=== PATIENT | male | born 1995 | race African-American/Black ===

== ENCOUNTER 2017-05-01 07:16 | Emergency (ER) | payer SELFPAY ==
[~2017-05-01] VITALS: Ht 165.1 cm; Wt 60.0 kg
[2017-05-01 07:17] VITALS: BP 127/87; PULSE 68; RESP 20; TEMP 98.6; O2SAT 98
--- NOTE | 2017-05-01 08:06 | PD ---
HPI Chief Complaint: GI Complaint Time Seen by Provider: 07:51 Travel History International Travel<30 days: No Contact w/Intl Traveler<30days: No Traveled to known affect area: No History of Present Illness HPI This is a 21-year-old male who presents to the emergency department with pain in his rectum. For months he's had trouble with hemorrhoids and is also been told that he has a wart on his rectum. He says now it is painful to use the bathroom, he's having some pain when he walks, and he occasionally has some blood in his rectum. He's been using Preparation H and witch jose manuel but he says it noriega when he applies it. He went to a specialist but they said they couldn' t get him for removal for some time. He denies any fevers or chills. PFSH Past Medical History Immunizations Current: Yes Past Surgical History Genitourinary Surgery: Yes (SX FOR TESTICULAR TORSION) Pacemaker: No Tonsillectomy: Yes (and adnoids) Other Surgery: Yes (Warts removed from his mother) Social History Alcohol Use: No Tobacco Use: No Substance Use: No Allergies-Medications (Allergen,Severity, Reaction): Coded Allergies: Morphine (Verified Allergy, Severe, Rash, 05/08/15) Vancomycin (Verified Allergy, Severe, 05/08/15) Reported Meds & Prescriptions Reported Meds & Active Scripts Active No Active Prescriptions or Reported Medications Review of Systems Except as stated in HPI: all other systems reviewed are Neg Physical Exam Narrative GENERAL: Well-appearing, no acute distress, nontoxic SKIN: Warm and dry. HEAD: Atraumatic. Normocephalic. ENT: No nasal bleeding or discharge. Moist mucous membranes Rectal:Condyloma on the 9:00 aspect of the rectum with external hemorrhoids at 12:00 MUSCULOSKELETAL: No obvious deformities. No clubbing. No cyanosis. No edema. NEUROLOGICAL: Awake and alert. No obvious cranial nerve deficits. Motor grossly within normal limits. Normal speech. PSYCHIATRIC: Appropriate mood and affect; insight and judgment normal. Data Data Last Documented VS Vital Signs Date Time Temp Pulse Resp B/P Pulse Ox O2 Delivery O2 Flow Rate FiO2 05/01/17 07:17 98.6 68 20 127/87 98 Room Air MDM Medical Decision Making Medical Screen Exam Complete: Yes Emergency Medical Condition: Yes Differential Diagnosis Rectal condyloma, external hemorrhoids, internal hemorrhoids, perirectal abscess Narrative Course This is a 21-year-old male who presents to the emergency department with pain in his rectum. He has evidence of hemorrhoids and condyloma on his rectum. I Don't think he requires any acute intervention in the emergency department but I did provide him a referral to colorectal surgery. Patient will be discharged home. Diagnosis Primary Impression: Condyloma acuminatum of perianal region Referrals: Shane Wells MD Patient Instructions: General Instructions Additional Instructions: If you develop severe or worsening abdominal pain, fever>100.4, persistent vomiting or inability to eat or drink return to the emergency department immediately. Follow up with a colorectal surgeon as soon as possible. Med/Other Pt SpecificInfo: No Change to Meds Scripts No Active Prescriptions or Reported Meds Disposition: 01 DISCHARGE HOME Condition: Stable Meaghan Ayala MD May 01, 2017 08:05
== END 2017-05-01 08:32 | disposition home or self-care (01) ==
LOC: NEPC 07:16
DX: A63.0 Anogenital (venereal) warts (principal)
CPT/HCPCS: 99281

== ENCOUNTER 2017-05-07 04:32 | Emergency (ER) | payer SELFPAY ==
[~2017-05-07] VITALS: Ht 165.1 cm; Wt 61.5 kg
[2017-05-07 04:38] VITALS: BP 120/84; PULSE 73; RESP 16; TEMP 96.8; O2SAT 100
[2017-05-07] MEDS ORDERED: LIDOCAINE HCL 5% OINT 37 GM TUBE TOPICAL ONE (05:00)
[2017-05-07] MEDS ORDERED: TRAM50TA PO (05:06)
[2017-05-07] MEDS ORDERED: PERI8.6T PO (05:06)
--- NOTE | 2017-05-07 05:07 | PD ---
HPI Chief Complaint: Pain: Acute or Chronic Time Seen by Provider: 04:44 Travel History International Travel<30 days: No Contact w/Intl Traveler<30days: No Traveled to known affect area: No History of Present Illness HPI 21-year-old man, rectal pain from condyloma, with worsening pain. Unable to get follow-up. Unable to get prescription medications. Taking some Preparation H. History Past Medical History Medical History: Denies Significant Hx Social History Alcohol Use: No Tobacco Use: No Allergies-Medications (Allergen,Severity, Reaction): Coded Allergies: Morphine (Verified Allergy, Severe, Rash, 05/07/17) Vancomycin (Verified Allergy, Severe, 05/07/17) Reported Meds & Prescriptions Reported Meds & Active Scripts Active No Active Prescriptions or Reported Medications Review of Systems Except as stated in HPI: all other systems reviewed are Neg Physical Exam Narrative Gen.: 21 year-old woman, uncomfortable, nontoxic RECTAL: Condyloma on the rectum. Diffuse tenderness. No bleeding. Data Data Last Documented VS Vital Signs Date Time Temp Pulse Resp B/P Pulse Ox O2 Delivery O2 Flow Rate FiO2 05/07/17 04:47 16 05/07/17 04:38 96.8 73 120/84 100 Orders Lidocaine 5% Oint (Xylocaine 5% Oint) (05/07/17 05:00) MDM Medical Decision Making Medical Screen Exam Complete: Yes Emergency Medical Condition: Yes Differential Diagnosis Rectal pain, on Lamictal, hemorrhoids, abscess, other Narrative Course Medical decision making 21-year-old man, known condyloma in the rectal area, painful, unable to give prescription medications are outpatient follow-up. Recommend follow-up with colorectal as previously directed. We'll give lidocaine ointment here. We'll recommend stool softeners to reduce straining, and tramadol if needed. Lortab if needed for severe pain. Diagnosis Primary Impression: Condyloma acuminatum of perianal region Additional Instructions: Use lidocaine ointment 4 times daily as needed. Take Prabha-Colace as prescribed to facilitate loose stools. Take Lortab if needed for severe pain. Follow-up with colorectal surgery as previously referred. Med/Other Pt SpecificInfo: Prescription(s) given Scripts Sennosides-Docusate Sodium (Prabha-Colace)8.6-50 Mg Tab2 Tab PO BID PRN ( Constipation) #60 TAB Ref 0 Prov:Rafiq Delaney MD 05/07/17 Tramadol 50 Mg Tab50 Mg PO Q8H PRN (PAIN) #21 TAB Ref 0 Prov:Rafiq Delaney MD 05/07/17 Rafiq Delaney MD May 07, 2017 05:07
== END 2017-05-07 05:30 | disposition home or self-care (01) ==
LOC: NEPE 04:32
DX: A63.0 Anogenital (venereal) warts (principal)
CPT/HCPCS: 99283